=== PATIENT | female | born 1965 | race Asian ===

== ENCOUNTER 2020-10-31 08:28 | Emergency (ER) | payer OTHER ==
[~2020-10-31] VITALS: Ht 154.9 cm; Wt 82.5 kg
--- NOTE | 2020-10-31 09:51 | NUR ---
PT. IS A & O X 4 WITH A [employer]CS OF 15 AND C/O GENERALIZED PAIN AND FEELING SOB. PT.'S RESPIRATIONS ARE EUPNEIC. SATS ARE 94% ON ROOM AIR. VSS. PT.'S LUNGS ARE CTA THROUGHOUT. CAP REFILL IS BRISK, LESS THAN 2 SECONDS. PT.'S ABD. IS SOFT AND FLAT WITH BS + X 4 QUADS. PT. [place] WNL WITH PULSES +2 THROUGHOUT. PT.'S HOB IS ELEVATED GREATER THAN 30 DEGREES. PT. WAS GIVEN A BLANKET.
[2020-10-31] MEDS ORDERED: ONDANSETRON ODT 4 MG PO ONE (10:00)
[2020-10-31] MEDS ORDERED: ONDANSETRON ODT 8 MG ONE (10:01)
[2020-10-31 10:11] LABS: BASOPHILS % (AUTO) 0 % (0-1); EOSINOPHILS % (AUTO) 0 % (1-7); LYMPHOCYTES % (AUTO) 12 % (22-44); MEAN CORPUSCULAR HEMOGLOBIN 30.2 pg (27.0-34.8); MEAN CORPUSCULAR HGB CONC 34.9 g/dL (32.4-35.8); MEAN PLATELET VOLUME 8.3 fL (7.4-10.4); MONOCYTES % (AUTO) 6 % (2-9); NEUTROPHILS % (AUTO) 83 % (42-75); PLATELET COUNT 186 x10^3/uL (130-400); RED CELL DISTRIBUTION WIDTH 13.4 % (9.6-15.2)
[2020-10-31 10:32] LABS: ALANINE AMINOTRANSFERASE 61 U/L (12-78); ALKALINE PHOSPHATASE 72 U/L (45-117); BILIRUBIN,TOTAL 0.5 mg/dL (0.2-1.0); CALCIUM 7.8 mg/dL (8.5-10.1); CHLORIDE 94 mmol/L (98-107); CREATININE 0.94 mg/dL (0.55-1.02)
[2020-10-31 10:33] LABS: ANION GAP 12 mmol/L (5-15)
[2020-10-31] MEDS ORDERED: SODIUM CHLORIDE FLUSH 10ML SYR IVF ONE (11:00)
[2020-10-31] MEDS ORDERED: SODIUM CHLORIDE 0.9% 1,000ML IVBOLUS ONE (11:00)
--- NOTE | 2020-10-31 11:18 | NUR ---
IV ACCESS ESTABLISHED. NS BOLUS INFUSING. NO VOMITING AT THIS TIME. PT.'S VITALS ARE STABLE AND SHE IS RESTING WITHOUT CONCERNS. FAMILY IS AT THE BEDSIDE.
--- NOTE | 2020-10-31 11:22 | NUR ---
PT. WAS PLACED ON O2 AT 2 LITERS. HOB ELEVATED GREATER THAN 30 DEGREES.
--- NOTE | 2020-10-31 12:40 | NUR ---
NO CHANGES AT THIS TIME. PT. IS RESTING IV FLUIDS INFUSING. VSS.
[2020-10-31] MEDS ORDERED: DEXAMETHASONE 4 MG/ML, 5ML ONE (13:19)
[2020-10-31] MEDS ORDERED: DEXAMETHASONE 4 MG/ML, 1ML IVPush ONE ×2 (13:30)
--- NOTE | 2020-10-31 14:36 | NUR ---
PT.'S SATS REMAINED AT 94% ON ROOM AIR. DISCHARGE INSTRUCTIONS AND SCRIPTS WERE GIVEN WITH UNDERSTANDING VERBALIZED ALONG WITH WILLINGNESS TO COMPLY. PT. WAS AMBULATORY TO THE DISCHARGE DESK. VSS. PT.'S IV WAS DCD', CATH TIP INTACT. PRESSURE HELD WITH HEMOSTASIS ACHIEVED.
[2020-10-31 14:38] VITALS: BP 139/81
== END 2020-10-31 14:41 | disposition home or self-care (01) ==
LOC: EDBD 08:28 → ED 12:59
DX: U07.1 COVID-19 (principal); J06.9 Acute upper respiratory infection, unspecified; R11.10 Vomiting, unspecified; R06.02 Shortness of breath; R07.89 Other chest pain; I10 Essential (primary) hypertension; E11.9 Type 2 diabetes mellitus without complications
CPT/HCPCS: 36415; 74022; 80053; 83690; 85025; 93005; 96361; 96374; 99285; J1100; J7030; Q0162; U0003; U0005

== ENCOUNTER 2020-11-05 16:54 | Inpatient (IN) | payer OTHER ==
[~2020-11-05] VITALS: Ht 154.9 cm; Wt 80.7 kg
--- NOTE | 2020-11-05 17:24 | NUR ---
Patient presents to ER c/o CP and SOB. Patient states she is COVID+ since Friday and experienced CP during the last week. Today she started experiencing SOB. On arrival in triage, patient was 86% on RA. 92% with 4lpm O2. Patient is breathing rapidly and is obviously SOB. Respirations even. Speaking in full word sentences. States she still has CP at this time. No radiation.
[2020-11-05] MEDS ORDERED: DEXAMETHASONE 4 MG/ML, 1ML ONE (17:45)
[2020-11-05] MEDS ORDERED: DOXYCYCLINE 100MG TABLET ONE (17:46)
--- NOTE | 2020-11-05 17:55 | NUR ---
PIV INITITAED, PT MEDICATED PER MAY. LABS/BC BEING DRAWN. PT TO CARD MONITOR, BP, CONT PULSE OX
[2020-11-05] MEDS ORDERED: DEXAMETHASONE 4 MG/ML, 1ML IV ONE (18:00)
[2020-11-05] MEDS ORDERED: CEFTRIAXONE 1,000 MG in DEXTROSE 5% 50 ML IVPB ONE (18:00)
[2020-11-05] MEDS ORDERED: DOXYCYCLINE 100MG TABLET PO ONE (18:00)
[2020-11-05] MEDS ORDERED: SODIUM CHLORIDE 0.9%, 500ML IVBOLUS ONE (18:00)
[2020-11-05 18:09] LABS: PH, VENOUS 7.446 pH (7.320-7.420)
[2020-11-05 18:20] LABS: PLATELET (DIC) 394 x10^3/uL (130-400)
[2020-11-05 18:22] LABS: BASOPHILS % (AUTO) 0 % (0-1); EOSINOPHILS % (AUTO) 0 % (1-7); LYMPHOCYTES % (AUTO) 13 % (22-44); MEAN CORPUSCULAR HEMOGLOBIN 30.7 pg (27.0-34.8); MEAN CORPUSCULAR HGB CONC 35.4 g/dL (32.4-35.8); MEAN PLATELET VOLUME 7.5 fL (7.4-10.4); MONOCYTES % (AUTO) 9 % (2-9); NEUTROPHILS % (AUTO) 79 % (42-75); PLATELET COUNT 391 x10^3/uL (130-400); RED BLOOD COUNT 4.55 x10^6/uL (3.82-5.3); RED CELL DISTRIBUTION WIDTH 13.7 % (9.6-15.2)
[2020-11-05 18:27] LABS: ALANINE AMINOTRANSFERASE 40 U/L (12-78); ALBUMIN 2.3 g/dL (3.4-5.0); CALCIUM 8.5 mg/dL (8.5-10.1); CREATININE 1.24 mg/dL (0.55-1.02)
[2020-11-05 18:45] LABS: ACETONE, SERUM Negative (Negative)
--- NOTE | 2020-11-05 18:52 | NUR ---
REPORT FROM GODFREY ASHLEY
[2020-11-05 19:04] LABS: CHLORIDE 99 mmol/L (98-107)
[2020-11-05 19:05] LABS: ANION GAP 12 mmol/L (5-15)
[2020-11-05 19:11] LABS: ALKALINE PHOSPHATASE 108 U/L (45-117); TOTAL PROTEIN 8.5 g/dL (6.4-8.2)
[2020-11-05 19:27] LABS: D-DIMER (DIC) 0.35 ug/mlFEU (0.00-0.52); PROTIME 10.3 Seconds (9.6-11.5); PTT 30 Seconds (25-31)
[2020-11-05 19:29] LABS: FIBRINOGEN > 713 mg/dL (200-340)
[2020-11-05] MEDS ORDERED: ENALAPRILAT 1.25 MG/ML, 2ML IVPush PRN (20:00)
[2020-11-05] MEDS ORDERED: MELATONIN 5 MG TABLET PO PRN (20:00)
[2020-11-05] MEDS ORDERED: ONDANSETRON 2MG/ML, 2ML IVPush PRN (20:00)
[2020-11-05] MEDS ORDERED: ACETAMINOPHEN 325 MG TABLET PO PRN (20:00)
[2020-11-05] MEDS ORDERED: hydrALAzine 20 MG/ML, 1ML IVPush PRN (20:00)
[2020-11-05] MEDS ORDERED: ONDANSETRON ODT 4 MG PO PRN (20:00)
[2020-11-05] MEDS ORDERED: DOCUSATE 100 MG CAPSULE PO PRN (20:00)
[2020-11-05] MEDS ORDERED: BISACODYL 10 MG SUPP PR PRN (20:00)
[2020-11-05] MEDS ORDERED: POLYETHYLENE GLYCOL 17 GM PACKET PO PRN (20:00)
[2020-11-05] MEDS ORDERED: IBUPROFEN 600 MG TABLET PO PRN (20:00)
[2020-11-05] MEDS ORDERED: GLUCAGON 1 MG IM PRN (20:30)
[2020-11-05] MEDS ORDERED: DEXTROSE 50%, 50ML SYRINGE IVPush PRN (20:30)
[2020-11-05] MEDS ORDERED: DEXTROSE 4 GM TAB.CHEW PO PRN (20:30)
[2020-11-05] MEDS ORDERED: REMDESIVIR 200 MG in SODIUM CHLORIDE 0.9% 250 ML IVPB ONE (20:30)
[2020-11-05 20:41] LABS: TROPONIN I < 0.015 ng/mL (0.000-0.045)
--- NOTE | 2020-11-05 20:51 | NUR ---
Report to Imani ASHLEY
[2020-11-05 21:10] VITALS: BP 130/78
[2020-11-05] MEDS ORDERED: LISI1TAB39 PO (21:34)
[2020-11-05] MEDS ORDERED: METF10007 PO (21:34)
[2020-11-05 22:02] LABS: ALANINE AMINOTRANSFERASE 41 U/L (12-78); ALBUMIN 2.2 g/dL (3.4-5.0); ANION GAP 9 mmol/L (5-15); CALCIUM 8.3 mg/dL (8.5-10.1); CHLORIDE 100 mmol/L (98-107); CREATININE 1.13 mg/dL (0.55-1.02)
[2020-11-05 22:04] LABS: ALKALINE PHOSPHATASE 109 U/L (45-117); BILIRUBIN,TOTAL 0.8 mg/dL (0.2-1.0); TOTAL PROTEIN 8.2 g/dL (6.4-8.2)
[2020-11-05] MEDS: ASCORBIC ACID 500 MG TABLET PO SCH (22:16)
[2020-11-05] MEDS: CHOLECALCIFEROL 5,000u TAB PO SCH (22:16)
[2020-11-05] MEDS: SODIUM CHLORIDE FLUSH 10ML SYR IVF SCH (22:17)
[2020-11-05] MEDS: HEPARIN 5,000 UNITS/ML, 1ML SQ SCH (22:17)
[2020-11-05] MEDS: INSULIN LISPRO 100 UNITS/ML, PEN SQ-INSULIN SCH (22:47)
[2020-11-06 00:58] VITALS: BP 117/79
[2020-11-06 06:32] LABS: BASOPHILS % (AUTO) 1 % (0-1); EOSINOPHILS % (AUTO) 0 % (1-7); LYMPHOCYTES % (AUTO) 19 % (22-44); MEAN CORPUSCULAR HEMOGLOBIN 30.3 pg (27.0-34.8); MEAN PLATELET VOLUME 7.5 fL (7.4-10.4); MONOCYTES % (AUTO) 6 % (2-9); NEUTROPHILS % (AUTO) 75 % (42-75); PLATELET COUNT 397 x10^3/uL (130-400); RED BLOOD COUNT 4.41 x10^6/uL (3.82-5.3); RED CELL DISTRIBUTION WIDTH 13.6 % (9.6-15.2)
[2020-11-06 06:43] LABS: ALBUMIN 2.3 g/dL (3.4-5.0); ANION GAP 10 mmol/L (5-15); CALCIUM 8.5 mg/dL (8.5-10.1); CHLORIDE 101 mmol/L (98-107)
[2020-11-06 06:48] LABS: ALANINE AMINOTRANSFERASE 40 U/L (12-78); ALKALINE PHOSPHATASE 110 U/L (45-117); BILIRUBIN,TOTAL 0.6 mg/dL (0.2-1.0); CREATININE 0.98 mg/dL (0.55-1.02); TOTAL PROTEIN 8.1 g/dL (6.4-8.2)
[2020-11-06] MEDS: HEPARIN 5,000 UNITS/ML, 1ML SQ SCH ×2 (08:07→15:05)
[2020-11-06] MEDS: DEXAMETHASONE 4 MG/ML, 1ML IVPush SCH (08:07)
[2020-11-06] MEDS: INSULIN LISPRO 100 UNITS/ML, PEN SQ-INSULIN SCH ×4 (08:07→21:01)
[2020-11-06] MEDS: DOXYCYCLINE 100MG TABLET PO SCH ×2 (08:09→20:38)
[2020-11-06] MEDS: ZINC SULFATE 220 MG CAPSULE PO SCH (08:09)
[2020-11-06] MEDS: THIAMINE 100MG TABLET PO SCH (08:10)
[2020-11-06] MEDS: CHOLECALCIFEROL 5,000u TAB PO SCH (08:10)
[2020-11-06] MEDS: ASCORBIC ACID 500 MG TABLET PO SCH ×2 (08:10→20:38)
[2020-11-06] MEDS: SODIUM CHLORIDE FLUSH 10ML SYR IVF SCH ×2 (08:12→20:38)
[2020-11-06 08:14] VITALS: BP 119/79
[2020-11-06] MEDS ORDERED: DOXYCYCLINE 100MG TABLET PO SCH (09:00)
[2020-11-06 12:01] VITALS: BP 120/77
[2020-11-06 13:00] LABS: MICROSCOPIC INDICATED
[2020-11-06] MEDS: CEFTRIAXONE 2,000 MG in DEXTROSE 5% 50 ML IVPB SCH (17:15)
[2020-11-06] MEDS ORDERED: CEFTRIAXONE 1,000 MG in DEXTROSE 5% 50 ML IVPB SCH (18:00)
[2020-11-06] MEDS: REMDESIVIR 100 MG in SODIUM CHLORIDE 0.9% 250 ML IVPB SCH (20:38)
[2020-11-06 20:45] VITALS: BP 126/83
[2020-11-06] MEDS: INSULIN GLARGINE 100 UNITS/ML, PEN SQ-INSULIN SCH (21:01)
[2020-11-07] MEDS: HEPARIN 5,000 UNITS/ML, 1ML SQ SCH ×3 (00:15→15:35)
[2020-11-07 00:21] VITALS: BP 127/79
[2020-11-07 05:13] LABS: HCT (SEDRATE) 39.2 % (34.6-47.8)
[2020-11-07 05:14] LABS: BASOPHILS % (AUTO) 0 % (0-1); EOSINOPHILS % (AUTO) 0 % (1-7); LYMPHOCYTES % (AUTO) 8 % (22-44); MEAN CORPUSCULAR HEMOGLOBIN 29.7 pg (27.0-34.8); MEAN CORPUSCULAR HGB CONC 34.1 g/dL (32.4-35.8); MEAN PLATELET VOLUME 7.8 fL (7.4-10.4); MONOCYTES % (AUTO) 9 % (2-9); NEUTROPHILS % (AUTO) 83 % (42-75); PLATELET COUNT 498 x10^3/uL (130-400); RED BLOOD COUNT 4.47 x10^6/uL (3.82-5.3); RED CELL DISTRIBUTION WIDTH 13.6 % (9.6-15.2)
[2020-11-07 05:21] LABS: ALANINE AMINOTRANSFERASE 38 U/L (12-78); ALBUMIN 2.3 g/dL (3.4-5.0); ANION GAP 8 mmol/L (5-15); CHLORIDE 103 mmol/L (98-107)
[2020-11-07 05:23] LABS: D-DIMER 0.26 ug/mlFEU (0.00-0.52)
[2020-11-07 05:26] LABS: ALKALINE PHOSPHATASE 99 U/L (45-117); BILIRUBIN,TOTAL 0.4 mg/dL (0.2-1.0); TOTAL PROTEIN 7.9 g/dL (6.4-8.2)
[2020-11-07] MEDS: INSULIN LISPRO 100 UNITS/ML, PEN SQ-INSULIN SCH ×4 (07:18→20:27)
[2020-11-07] MEDS: DEXAMETHASONE 4 MG/ML, 1ML IVPush SCH (07:19)
[2020-11-07] MEDS: SODIUM CHLORIDE FLUSH 10ML SYR IVF SCH ×2 (07:19→20:27)
[2020-11-07] MEDS: THIAMINE 100MG TABLET PO SCH (07:20)
[2020-11-07] MEDS: CHOLECALCIFEROL 5,000u TAB PO SCH (07:21)
[2020-11-07] MEDS: DOXYCYCLINE 100MG TABLET PO SCH ×2 (07:21→20:25)
[2020-11-07] MEDS: ZINC SULFATE 220 MG CAPSULE PO SCH (07:21)
[2020-11-07] MEDS: ASCORBIC ACID 500 MG TABLET PO SCH ×2 (07:21→20:25)
[2020-11-07 07:26] VITALS: BP 148/80
[2020-11-07 12:13] VITALS: BP 143/81
[2020-11-07] MEDS: CEFTRIAXONE 2,000 MG in DEXTROSE 5% 50 ML IVPB SCH (18:02)
[2020-11-07 19:14] VITALS: BP 145/80
[2020-11-07] MEDS: REMDESIVIR 100 MG in SODIUM CHLORIDE 0.9% 250 ML IVPB SCH (20:24)
[2020-11-07] MEDS: INSULIN GLARGINE 100 UNITS/ML, PEN SQ-INSULIN SCH (20:27)
[2020-11-08] MEDS: HEPARIN 5,000 UNITS/ML, 1ML SQ SCH ×4 (00:09→23:30)
[2020-11-08 01:55] VITALS: BP 153/88
[2020-11-08 05:16] LABS: ALANINE AMINOTRANSFERASE 38 U/L (12-78); ALBUMIN 2.1 g/dL (3.4-5.0); ANION GAP 6 mmol/L (5-15); CALCIUM 8.2 mg/dL (8.5-10.1); CHLORIDE 105 mmol/L (98-107); CREATININE 0.87 mg/dL (0.55-1.02)
[2020-11-08 05:18] LABS: ALKALINE PHOSPHATASE 93 U/L (45-117); BILIRUBIN,TOTAL 0.3 mg/dL (0.2-1.0); TOTAL PROTEIN 7.8 g/dL (6.4-8.2)
[2020-11-08] MEDS: INSULIN LISPRO 100 UNITS/ML, PEN SQ-INSULIN SCH ×4 (07:56→20:59)
[2020-11-08 08:37] VITALS: BP 131/83
[2020-11-08] MEDS: ASCORBIC ACID 500 MG TABLET PO SCH ×2 (10:39→20:57)
[2020-11-08] MEDS: THIAMINE 100MG TABLET PO SCH (10:39)
[2020-11-08] MEDS: ZINC SULFATE 220 MG CAPSULE PO SCH (10:40)
[2020-11-08] MEDS: DOXYCYCLINE 100MG TABLET PO SCH ×2 (10:40→20:57)
[2020-11-08] MEDS: DEXAMETHASONE 4 MG/ML, 1ML IVPush SCH (10:40)
[2020-11-08] MEDS: SODIUM CHLORIDE FLUSH 10ML SYR IVF SCH ×2 (10:41→20:57)
[2020-11-08] MEDS: CHOLECALCIFEROL 5,000u TAB PO SCH (10:41)
[2020-11-08 13:31] VITALS: BP 143/84
[2020-11-08] MEDS: CEFTRIAXONE 2,000 MG in DEXTROSE 5% 50 ML IVPB SCH (17:03)
[2020-11-08 20:07] VITALS: BP 148/82
[2020-11-08] MEDS: REMDESIVIR 100 MG in SODIUM CHLORIDE 0.9% 250 ML IVPB SCH (20:56)
[2020-11-08] MEDS: INSULIN GLARGINE 100 UNITS/ML, PEN SQ-INSULIN SCH (20:59)
[2020-11-09 02:00] VITALS: BP 141/78
[2020-11-09 07:45] VITALS: BP 165/102
[2020-11-09 07:47] LABS: ANION GAP 7 mmol/L (5-15); CALCIUM 8.3 mg/dL (8.5-10.1); CHLORIDE 107 mmol/L (98-107)
[2020-11-09 07:53] LABS: ALANINE AMINOTRANSFERASE 38 U/L (12-78); ALBUMIN 2.2 g/dL (3.4-5.0); ALKALINE PHOSPHATASE 86 U/L (45-117); BILIRUBIN,TOTAL 0.4 mg/dL (0.2-1.0); CREATININE 0.92 mg/dL (0.55-1.02); TOTAL PROTEIN 7.2 g/dL (6.4-8.2)
[2020-11-09] MEDS: HEPARIN 5,000 UNITS/ML, 1ML SQ SCH ×2 (07:54→16:28)
[2020-11-09] MEDS: INSULIN LISPRO 100 UNITS/ML, PEN SQ-INSULIN SCH ×4 (07:54→20:11)
[2020-11-09] MEDS: SODIUM CHLORIDE FLUSH 10ML SYR IVF SCH ×2 (07:55→20:12)
[2020-11-09] MEDS: ASCORBIC ACID 500 MG TABLET PO SCH ×2 (07:55→20:10)
[2020-11-09] MEDS: THIAMINE 100MG TABLET PO SCH (07:55)
[2020-11-09] MEDS: DEXAMETHASONE 4 MG/ML, 1ML IVPush SCH (07:55)
[2020-11-09] MEDS: DOXYCYCLINE 100MG TABLET PO SCH ×2 (07:56→20:10)
[2020-11-09] MEDS: ZINC SULFATE 220 MG CAPSULE PO SCH (07:56)
[2020-11-09] MEDS: CHOLECALCIFEROL 5,000u TAB PO SCH (07:56)
[2020-11-09 09:35] LABS: BASOPHILS % (AUTO) 0 % (0-1); EOSINOPHILS % (AUTO) 0 % (1-7); LYMPHOCYTES % (AUTO) 7 % (22-44); MEAN CORPUSCULAR HEMOGLOBIN 29.6 pg (27.0-34.8); MEAN CORPUSCULAR HGB CONC 33.8 g/dL (32.4-35.8); MEAN PLATELET VOLUME 7.3 fL (7.4-10.4); MONOCYTES % (AUTO) 6 % (2-9); NEUTROPHILS % (AUTO) 87 % (42-75); PLATELET COUNT 515 x10^3/uL (130-400); RED BLOOD COUNT 4.45 x10^6/uL (3.82-5.3); RED CELL DISTRIBUTION WIDTH 13.4 % (9.6-15.2)
[2020-11-09 09:42] VITALS: BP 146/86
[2020-11-09 09:43] LABS: D-DIMER 0.32 ug/mlFEU (0.00-0.52)
[2020-11-09 09:58] LABS: ALANINE AMINOTRANSFERASE 41 U/L (12-78); ALBUMIN 2.4 g/dL (3.4-5.0); ALKALINE PHOSPHATASE 92 U/L (45-117); ANION GAP 8 mmol/L (5-15); BILIRUBIN,TOTAL 0.6 mg/dL (0.2-1.0); C-REACTIVE PROTEIN, QUANT 0.79 mg/dL (0.02-0.49); CALCIUM 8.3 mg/dL (8.5-10.1); CHLORIDE 105 mmol/L (98-107); CREATININE 0.88 mg/dL (0.55-1.02); TOTAL PROTEIN 7.6 g/dL (6.4-8.2)
[2020-11-09] MEDS ORDERED: ZINC220C8 PO (11:22)
[2020-11-09] MEDS ORDERED: ASCO500T9 PO (11:22)
[2020-11-09] MEDS ORDERED: INSU100I13 SQ-INSULIN (11:22)
[2020-11-09] MEDS ORDERED: DOXY100T PO ×3 (11:22→11:32)
[2020-11-09] MEDS ORDERED: CEFD300C37 PO (11:32)
[2020-11-09 12:04] LABS: HCT (SEDRATE) 39.1 % (34.6-47.8)
[2020-11-09 13:28] VITALS: BP 160/87
[2020-11-09] MEDS: CEFTRIAXONE 2,000 MG in DEXTROSE 5% 50 ML IVPB SCH (17:10)
[2020-11-09] MEDS: REMDESIVIR 100 MG in SODIUM CHLORIDE 0.9% 250 ML IVPB SCH (17:57)
[2020-11-09 19:33] VITALS: BP 146/84
[2020-11-09] MEDS: INSULIN GLARGINE 100 UNITS/ML, PEN SQ-INSULIN SCH (20:11)
== END 2020-11-09 20:37 | disposition home or self-care (01) | DRG 177 ==
LOC: ED 17:24 → EDIP 19:17 → 4WST 21:02
PROVIDERS: ADMIT Internal Medicine; ATTEND Hospitalist
PROC: XW033E5 Introduction of Remdesivir Anti-infective into Peripheral Vein, Percutaneous Approach, New Technology Group 5 (ICD-10-PCS; principal; 2020-11-05)
DX: U07.1 COVID-19 (principal); J96.01 Acute respiratory failure with hypoxia; J12.82 Pneumonia due to coronavirus disease 2019; E87.2 Acidosis; E66.9 Obesity, unspecified; E11.65 Type 2 diabetes mellitus with hyperglycemia; I10 Essential (primary) hypertension; Z68.33 Body mass index [BMI] 33.0-33.9, adult
CPT/HCPCS: 36415; 71045; 80053; 81001; 82010; 82728; 82803; 82962; 83036; 83605; 83615; 83735; 83880; 84100; 84145; 84484; 85025; 85049; 85379; 85384; 85610; 85651; 85730; 86140; 87040; 87086; 93005; 96374; 96375; G0378; J0696; J1100; J1644; J1815; J7040; J7050